=== PATIENT | female | born 1950 | race Caucasian/White ===

== ENCOUNTER → 2017-01-13 | Outpatient (CLI) | payer MEDICARE ==
--- NOTE | 2017-01-13 10:46 | US ---
EXAMINATION TYPE: US abdomen complete DATE OF EXAM: 01/13/2017 7:07 AM COMPARISON: NONE CLINICAL HISTORY: RUQ Abd pain R10.11. larger habitus, rt flank pain, achy and constant EXAM MEASUREMENTS: Liver Length: 16.6 cm Gallbladder Wall: 0.2 cm CBD: 0.3 cm Spleen: 7.7 cm Right Kidney: 9.6 x 3.9 x 5.1 cm Left Kidney: 9.3 x 5.6 x 4.5 cm TECHNOLOGIST IMPRESSION: some exam limitations due to overlying bowel gas and larger habitus Pancreas: panc duct mildly prominent, somewhat echogenic, tail obscured by overlying bowel gas Liver: wnl Gallbladder: wnl Evidence for sonographic Govea's sign: no CBD: wnl Spleen: some limitations wnl as seen Right Kidney: wnl Left Kidney: lobular cortex Upper IVC: upper wnl Abd Aorta: wnl as seen IMPRESSION: 1. Normal abdomen ultrasound.
== END | disposition home or self-care (01) ==
LOC: RADUSWWP 06:53
PROVIDERS: ATTEND Family Medicine
DX: R10.11 Right upper quadrant pain (principal)
CPT/HCPCS: 76700

== ENCOUNTER 2017-02-16 07:18 | Day surgery (SDC) | payer MEDICARE ==
[2017-02-12 08:53] VITALS: BMI 27.9
[~2017-02-16 07:18] MED LIST: LACTATED RINGERS 1,000 ML IV SCH; LIDOCAINE 1% 20 ML VIAL (10MG/ML) FOR IV START INTRADERMA PRN
[2017-02-16 08:05] VITALS: TEMP 97.6
[2017-02-16 08:33] LABS: Glucose,Whole Blood 121 mg/dL (75-99)
[2017-02-16] MEDS ORDERED: LIDOCAINE 1% INJ 10MG/ML (20 ML MDV) ONE (09:18)
[2017-02-16] MEDS ORDERED: PROPOFOL 10 MG/ML 20 ML VIAL IV ONE (09:18)
[2017-02-16 09:39] VITALS: RESP 16
--- NOTE | 2017-02-16 09:41 | P.PCN ---
Date of Procedure: 02/16/17 Procedure(s) Performed: Procedure: Esophagogastroduodenoscopy and biopsy. Preoperative diagnosis: Iron deficiency anemia. Postoperative diagnosis: 1. Small sliding hiatal hernia with no obvious esophagitis or complicated reflux disease. 2. Antral gastritis with no spontaneous bleeding or gastric outlet obstruction. 3. Biopsies obtained from the duodenum, antrum and esophagus. Preparation sedation: Was provided by anesthesia. Brief clinical history: The patient is a 66-year-old female who is scheduled for this evaluation for iron deficiency anemia. I saw her in the office last month. Her hemoglobin was 11.9 in November. She has lost 13 pounds. She had no recent EGD. I performed a colonoscopy in May 2016 which was normal. She has nausea and some issues with swallowing of solid foods and was treated over the years with sublingual nitroglycerin for that. Her stools are dark but not bloody. Procedure: With the patient on her left lateral decubitus position and after informed consent and adequate sedation, I passed the Olympus-GIF 160 video upper endoscope through the cricopharyngeus down the esophagus. GE junction was around 35 cm from the incisors and there was a small sliding hiatal hernia. The esophagus did not show any obvious erosions, ulcers, strictures or Myers 's esophagus. The endoscope was then passed into the stomach which was insufflated with air and inspected in detail including the retroflex view in the cardia. There was obvious edema, erythema and friability in the antrum and prepyloric area with few linear and circular superficial erosions but no ulcers or bleeding. Pyloric channel did not show any ulcers. Duodenal bulb, post bulbar area and descending duodenum appeared within normal limits. I obtained multiple biopsies from the duodenum, antrum and esophagus then the endoscope was withdrawn. The patient tolerated the procedure well. Plan: The patient was reassured. Will await biopsy results. We will continue medical therapy and monitor her blood count and airway. Contingency to perform a capsule endoscopy.
[2017-02-16 10:04] VITALS: BP 136/76; PULSE 88
== END 2017-02-16 10:15 | disposition home or self-care (01) ==
LOC: ORWHC2ENDO 07:18
DX: K29.50 Unspecified chronic gastritis without bleeding (principal); K44.9 Diaphragmatic hernia without obstruction or gangrene; I10 Essential (primary) hypertension; E78.5 Hyperlipidemia, unspecified; E11.9 Type 2 diabetes mellitus without complications; Z79.84 Long term (current) use of oral hypoglycemic drugs; F32.9 Major depressive disorder, single episode, unspecified; G62.9 Polyneuropathy, unspecified; Z79.899 Other long term (current) drug therapy
CPT/HCPCS: 88305; 88342; 43239; J2001; J2704

== ENCOUNTER → 2017-10-08 | Outpatient (CLI) | payer MEDICARE | END | disposition home or self-care (01) | LOC: LABPAT 12:51 | PROVIDERS: ATTEND Orthopaedic Surgery | DX: Z01.812 Encounter for preprocedural laboratory examination (principal) | CPT/HCPCS: 86850; 86900; 86901; 87070 ==

== ENCOUNTER → 2017-12-28 | Outpatient (CLI) | payer MEDICARE ==
[2017-12-28 10:23] LABS: Basophils % (A) 1 %; Eosinophils # (A) 0.1 k/uL (0-0.7); Eosinophils % (A) 2 %; HCT 37.9 % (34.0-46.0); HGB 11.7 gm/dL (11.4-16.0); Hypochromasia Slight; Lymphocytes # (A) 2.1 k/uL (1.0-4.8); Lymphocytes % (A) 32 %; MCH 27.4 pg (25.0-35.0); MCHC 30.8 g/dL (31.0-37.0); MCV 89.1 fL (80.0-100.0); Mean Platelet Volume 6.7; Monocytes # (A) 0.4 k/uL (0-1.0); Monocytes % (A) 7 %; Neutrophils # (A) 3.6 k/uL (1.3-7.7); Neutrophils % (A) 57 %; Platelet Count 362 k/uL (150-450); RBC 4.25 m/uL (3.80-5.40); RDW 13.3 % (11.5-15.5); WBC 6.4 k/uL (3.8-10.6)
[2017-12-28 10:37] LABS: ALT 19 U/L (9-52); AST 23 U/L (14-36); Albumin 3.9 g/dL (3.5-5.0); Alkaline Phosphatase 82 U/L (38-126); Anion Gap 11 mmol/L; Blood Urea Nitrogen 30 mg/dL (7-17); Calcium 9.6 mg/dL (8.4-10.2); Carbon Dioxide 24 mmol/L (22-30); Chloride 106 mmol/L (98-107); Cholesterol 169 mg/dL (<200); Glucose 130 mg/dL (74-99); HDL Cholesterol 60 mg/dL (40-60); LDL Cholesterol,Calculated 85 mg/dL (0-99); Potassium 5.7 mmol/L (3.5-5.1); Sodium 141 mmol/L (137-145); Total Bilirubin 0.4 mg/dL (0.2-1.3); Total Protein 6.7 g/dL (6.3-8.2); Triglycerides 122 mg/dL (<150)
[2017-12-28 20:31] LABS: Hemoglobin A1C 6.1 % (4.0-6.0)
== END | disposition home or self-care (01) ==
LOC: LABWHC1 09:08
PROVIDERS: ATTEND Nurse Practitioner Family
DX: I10 Essential (primary) hypertension (principal); E11.9 Type 2 diabetes mellitus without complications; R42 Dizziness and giddiness
CPT/HCPCS: 36415; 80053; 80061; 83036; 84443; 84481; 85025